=== PATIENT | male | born 1970 | race Caucasian/White ===

== ENCOUNTER 2021-05-29 09:54 | Emergency (ER) | payer OTHER, SELFPAY ==
--- NOTE | ~2021-05-29 | XR_ITS ---
EXAMINATION: XR KNEE, LEFT CLINICAL INFORMATION: Knee pain. COMPARISON: None TECHNIQUE: Four views of the left knee. FINDINGS: There is mild reduction in the medial and patellofemoral compartment joint space. The lateral compartment joint space is normal. There is mild suprapatellar joint effusion. No loose bodies or bony erosive changes seen. XR/XR knee LT 4V IMPRESSION: Mild degenerative changes medial and patellofemoral compartments. No visible acute fracture or dislocation seen. Mild suprapatellar joint effusion.
[2021-05-29 10:05] VITALS: BP 147/95; PULSE 79; RESP 18; TEMP 36.1; O2SAT 98; BMI 31.5
--- NOTE | 2021-05-29 10:23 | ED.EXTPRO ---
HPI - Extremity Problem General Chief complaint: Extremity Injury, Lower Stated complaint: l knee inj Time Seen by Provider: 05/29/21 10:16 Source: patient Mode of arrival: ambulatory Limitations: no limitations History of Present Illness HPI Narrative: 51-year-old male presenting to the ED with complaints of atraumatic left knee pain since last night. He reports that he does not recall any injury and he has not been recently lifting or having any recent falls and yesterday he heard a loud pop and since then has been having pain with weight-bearing to the lateral and medial aspect of the left knee. He denies any fevers, chills, chest pain or shortness of breath, dyspnea on exertion, orthopnea, palpitations, lower extremity edema or calf swelling / tenderness or any weakness or any other symptoms complaints or concerns at this time. MD Complaint: extremity pain Onset (ago): day(s) ( yesterday) Pain Consistency: constant Location: left and knee Quality: aching Radiation: none Relieving factors: nothing Exacerbating factors: weight bearing and walking Associated symptoms: denies other symptoms Context: other ( recurrent history of meniscus tear and surgeries twice in the past) Related Data Previous Rx's Medication Instructions Recorded ibuprofen 800 mg tablet 800 mg PO Q8H PRN #14 tab 05/29/21 Allergies Allergy/AdvReac Type Severity Reaction Status Date / Time No Known Allergies Allergy Verified 05/29/21 10:07 Review of Systems Review of Systems: Constitutional : No Weight loss, No Fever, No Chills, No Night Sweats, No Fatigue, No Malaise ENT/Mouth : No Hearing loss, No Ear Pain, No Nasal Congestion, No Sinus Pain, No Hoarseness, No sore throat, No Rhinorrhea, No Swallowing Difficulty Eyes: No Eye Pain, No Swelling, No Redness, No Foreign Body, No Discharge, No Vision Changes Cardiovascular : No Chest Pain, No SOB, No Dyspnea on Exertion, No Orthopnea, No Edema, No Palpitations Respiratory : No Cough, No Sputum, No Wheezing, No Smoke Exposure, No Dyspnea Gastrointestinal : No Nausea, No Vomiting, No Diarrhea, No Constipation, No abdominal Pain, No Hematochezia, No Melena Genitourinary : no irregular bleeding, No Dysuria, No Urinary Frequency, No Hematuria, No Urinary Incontinence, No Urgency, No Flank Pain, No Urinary Flow Changes, No Hesitancy Musculoskeletal : + joint pain, No Myalgias, No Joint Swelling Skin : No Skin Lesions, No rash Neuro : No Weakness, No Numbness, No Paresthesias, No Loss of Consciousness, No Dizziness, No Headache Psych : No Anxiety/Panic, No Depression, No SI/HI/AH/VH, No Social Issues, Heme/Lymph: No Bruising, No Bleeding,No Lymphadenopathy Endocrine : No Polyuria, No Polydipsia, No Temperature Intolerance Yes all other systems are reviewed and are negative [facility] Past Medical History Attestation statement: The following information was validated with the patient. Medical History No known health problems Social History Social History Advance Directives: No Advance Directives Information Provided: No Physical Exam Vital Signs: Vital Signs: Last Vital Signs Temp 97.0 F 05/29/21 10:05 Pulse 79 05/29/21 10:05 Resp 18 05/29/21 10:05 BP 147/95 H 05/29/21 10:05 Pulse Ox 98 05/29/21 10:05 BMI result Body Mass Index 31.5 vital signs have been reviewed as normal and appeared to be correct. Blood pressure normal Heart rate normal. Respiration rate normal. Temperature normal. Oxygen saturation normal. Appearance: Alert. Oriented X3. No acute distress. Head: Normal external exam. Normocephalic. Atraumatic. Eyes: PERRLA. EOMI. Conjunctiva and sclera normal. Eyelids normal. ENT: Pharynx normal. Uvula midline. Moist mucous membranes. Neck: Normal inspection. Neck supple. FROM. CVS: Normal heart rate and rhythm. Respiratory: No respiratory distress. Painless inspiration. Skin: Skin warm and dry. Normal skin color. Normal skin turgor. No rashes/lesions/lacerations noted. Extremities: Patient with limited range of motion with flexion of the left knee otherwise no obvious ligamentous or tendinous injury/laxity noted on my exam. He has full extension and no pain with that. He has mild tenderness of patient at the lateral and the medial / suprapatellar aspect of the left knee. No obvious joint effusion. There is no signs of infection. There is no calf tenderness or No lower extremity edema. otherwise all other Extremities exhibit normal range of motion and nontender. Neuro: Oriented X 3. No motor deficit. No sensory deficit. Reflexes normal. Normal steady gait. No focal neuro deficits noted. Vascular: + radial pulses/+ 2 distal pedal pulses/+2 dorsalis pedis b/l. Normal cap refill. No cyanosis noted to upper extremity nails and lower extremity toes nails. Course Course Course Narrative: 51-year-old male presenting to the ED with complaints of atraumatic left knee pain since last night. He reports that he does not recall any injury and he has not been recently lifting or having any recent falls and yesterday he heard a loud pop and since then has been having pain with weight-bearing to the lateral and medial aspect of the left knee. He denies any fevers, chills, chest pain or shortness of breath, dyspnea on exertion, orthopnea, palpitations, lower extremity edema or calf swelling / tenderness or any weakness or any other symptoms complaints or concerns at this time. x-ray obtained and revealed mild suprapatellar joint effusion and mild degenerative changes otherwise no other acute processes. Therefore I offer the patient a knee mobilizer and he reported he already has 1 at home from his prior knee surgeries. Will DC home with symptomatic treatment and instructions return if any new or worsening symptoms follow up with Orthopedic as needed. Patient understands agrees with this plan MDM - Extremity (Nontraumatic) Medical Records Attestation: I reviewed the patient's medical records. Imaging Data left knee x-ray: Attestation: I personally reviewed and interpreted this imaging study as follows: Radiologist's impression: FINDINGS: There is mild reduction in the medial and patellofemoral compartment joint space. The lateral compartment joint space is normal. There is mild suprapatellar joint effusion. No loose bodies or bony erosive changes seen.? XR/XR knee LT 4V IMPRESSION: Mild degenerative changes medial and patellofemoral compartments. ? No visible acute fracture or dislocation seen. ? Mild suprapatellar joint effusion. Discharge Plan Discharge Clinical Impression: Effusion of knee joint, left, Arthritis of knee Patient Disposition: Home, Self-Care Instructions: Osteoarthritis (ED), Swollen Knee Joint (ED) Prescriptions: New ibuprofen 800 mg tablet 800 mg PO Q8H PRN (Reason: pain) Qty: 14 RF: 0 Referrals: Tawnya Spicer [Primary Care Provider] - 2 days Israel Wright MD [Physician] - 1 week ( follow-up in 1-2 weeks if symptoms persist) Print Language: Frisian
== END 2021-05-29 12:03 | disposition home or self-care (01) ==
PROVIDERS: Emergency Provider Emergency Medicine; PCP Nurse Practitioner
DX: M25.462 Effusion, left knee (principal); M17.12 Unilateral primary osteoarthritis, left knee
CPT/HCPCS: 73564; 99283

== ENCOUNTER 2021-07-04 05:46 | Emergency (ER) | payer OTHER, SELFPAY ==
[2021-07-04 05:56] VITALS: BP 141/86; PULSE 96; RESP 18; TEMP 37.3; O2SAT 94; BMI 30.7
[2021-07-04 06:15] LABS: COVID-19 Test Positive (Negative)
--- NOTE | 2021-07-04 06:33 | ED_ITS ---
HPI - URI/Sore Throat General Chief Complaint: Upper Respiratory Symptoms Stated Complaint: Covid symptoms/Home test + Time Seen by Provider: 07/04/21 06:33 Source: patient Mode of arrival: ambulatory History of Present Illness HPI Narrative: 51-year-old male, unvaccinated for COVID-19, comes in with symptoms of sore throat, cough, body aches and took a home test which showed that he was COVID-19 positive. Related Data Previous Rx's Medication Instructions Recorded ibuprofen 800 mg tablet 800 mg PO Q8H PRN #14 tab 05/29/21 Allergies Allergy/AdvReac Type Severity Reaction Status Date / Time No Known Allergies Allergy Verified 05/29/21 10:07 Review of Systems Review of Systems: Pertinent positives and negatives as stated in HPI 10 point review of systems is otherwise negative. PMFSH Past Medical History Source: nursing notes reviewed Medical History No known health problems Social History Social History Advance Directives: No Physical Exam Vital Signs: Vital Signs: Last Vital Signs Temp 99.2 F 07/04/21 05:56 Pulse 96 07/04/21 05:56 Resp 18 07/04/21 05:56 BP 141/86 H 07/04/21 05:56 Pulse Ox 94 07/04/21 05:56 BMI result Body Mass Index 30.7 VITAL SIGNS: Reviewed. GENERAL: Well developed, well nourished, in no acute distress. HEAD: Normocephalic/atraumatic EYES: PERRLA, EOMI OROPHARYNX: no oral lesions noted, posterior pharynx clear LUNGS: Normal breath sounds. No adventitious sounds or accessory muscle use. SpO2<94> CARDIOVASCULAR: Regular rate and rhythm without noted murmurs ABDOMEN: Soft, non-tender, non-distended with bowel sounds. SKIN: Inspection of the skin reveals no rashes NEUROLOGIC: Alert and oriented x 4. Course Course Course Narrative: 51-year-old male with history and clinical presentation consistent with viral syndrome and on review of investigations noted to be COVID-19 positive. Patient was informed of all results and otherwise discharged home in stable condition as he is not tachypneic, nor see tachycardic/febrile and is oxygenating well on room air. [facility] - URI/Sore Throat Lab Data Labs: Lab Results 07/04/21 Range/Units 06:05 COVID-19 (AL[facility]) Positive A (Negative) COVID-19 Clin Com See Note Discharge Plan Discharge Clinical Impression: Viral syndrome, Lab test positive for detection of COVID-19 virus Patient Disposition: Home, Self-Care Instructions: Viral Syndrome (ED), COVID-19 (Coronavirus Disease 2019) (ED) Additional Instructions: 1. Recommend [id number] Tylenol/ibuprofen as needed for headaches, body aches, temperatures greater than 100.4. 2. Increase fluid hydration especially with water and use a cool mist humidifier at your bedside for relief while sleeping. 3. You have tested positive for COVID-19 and must isolate for 14 days and follow all state and Federal guidelines for being COVID-19 positive. 4. Follow-up with your primary care provider in the next 2-3 days via telemedicine appointment for re-evaluation and further outpatient management. Return to the ER for worsening symptoms. Prescriptions: No Action ibuprofen 800 mg tablet 800 mg PO Q8H PRN (Reason: pain) Qty: 14 RF: 0 Referrals: Tawnya Gonzales DO [Primary Care Provider] - 2 days
== END 2021-07-04 06:47 | disposition home or self-care (01) ==
PROVIDERS: Emergency Provider Student in an Organized Health Care Education/Training Program; PCP Family Medicine
DX: U07.1 COVID-19 (principal); B34.9 Viral infection, unspecified
CPT/HCPCS: 87635; 99282; 99283

== ENCOUNTER → 2022-02-26 13:27 | Outpatient (BNVA) | payer SELFPAY | PROVIDERS: PCP Family Medicine; Visit Provider Internal Medicine | DX: Z02.79 Encounter for issue of other medical certificate (principal) ==

== ENCOUNTER → 2023-02-17 10:58 | Outpatient (BNVA) | payer SELFPAY | PROVIDERS: PCP Family Medicine; Visit Provider Internal Medicine | DX: Z02.79 Encounter for issue of other medical certificate (principal) ==

== ENCOUNTER → 2024-02-16 08:02 | Outpatient (BNVA) | payer SELFPAY | PROVIDERS: PCP Family Medicine; Visit Provider Physician Assistant Medical | DX: Z02.79 Encounter for issue of other medical certificate (principal) ==

== ENCOUNTER → 2025-02-08 08:27 | Outpatient (BNVA) | payer SELFPAY | PROVIDERS: PCP Family Medicine; Visit Provider Physician Assistant | DX: Z02.79 Encounter for issue of other medical certificate (principal) ==